=== PATIENT | female | born 2000 | race Caucasian/White ===

== ENCOUNTER 2020-01-03 14:14 | Emergency (ER) | payer OTHER, BC, SELFPAY ==
[2020-01-03 14:16] VITALS: BP 121/72; PULSE 90; RESP 18; TEMP 37; O2SAT 100
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
== END 2020-01-03 15:45 | disposition home or self-care (01) ==
PROVIDERS: Emergency Provider Emergency Medicine; PCP Internal Medicine
DX: S16.1XXA Strain of muscle, fascia and tendon at neck level, initial encounter (principal); S29.012A Strain of muscle and tendon of back wall of thorax, initial encounter; V44.5XXA Car driver injured in collision with heavy transport vehicle or bus in traffic accident, initial encounter
CPT/HCPCS: 99283

== ENCOUNTER 2021-11-20 08:32 | Emergency (ER) | payer BC, SELFPAY ==
--- NOTE | 2021-11-20 08:40 | ED.URI ---
HPI - URI/Sore Throat General Chief Complaint: Upper Respiratory Infection Stated Complaint: sore throat/cough Time Seen by Provider: 11/20/21 08:40 Source: patient, family, RN notes reviewed and old records reviewed Mode of arrival: ambulatory Limitations: no limitations History of Present Illness HPI Narrative: 20-year-old female presents to [facility] with complaints of sore throat and cough that started when she woke up this morning. States that she went to work, works in a daycare and developed a headache and fatigue. States that the daycare they have had a lot of positive flu and strep's. No treatment prior to arrival. No sinus pain or congestion. No chest pain or abdominal pain. No ear pain. Denies fevers MD elicited complaint: cough and sore throat Related Data Allergies Allergy/AdvReac Type Severity Reaction Status Date / Time No Known Allergies Allergy Verified 04/26/21 10:31 Review of Systems Review of Systems: All systems reviewed & are unremarkable except as noted in HPI and below Constitutional: Constitutional: Reports no additional constitutional complaints, Denies chills, Denies fever(s) and Denies headache(s) Eyes: Eyes: Reports no additional eye complaints ENT: Reports as per HPI, Denies vertigo, Denies dizziness, Denies headache(s), Denies nasal congestion and Reports sore throat Cardiovascular: Cardiovascular: Reports no additional cardiovascular complaints, Denies chest pain, Denies syncope, Denies rapid heart rate and Denies dyspnea Respiratory: Respiratory: Reports as per HPI, Reports cough, Denies dyspnea and Denies wheezing Gastrointestinal: Gastrointestinal: Reports no additional gastrointestinal complaints, Denies abdominal pain, Denies diarrhea, Denies nausea and Denies vomiting Musculoskeletal: Musculoskeletal: Reports no additional musculoskeletal complaints and Denies numbness Integumentary/Breasts: Skin/Breast: Reports system reviewed and no additional complaints, except as docu Neurologic: Reports system reviewed and no additional complaints, except as documented, Denies vertigo, Denies dizziness, Denies syncope, Denies headache(s), Denies focal weakness and Denies numbness Psychiatric: Psychiatric: Reports no additional psychiatric complaints Allergic/Immunologic: Allergic/Immunologic: Reports no additional allergic/immunologic complaints and Denies wheezing PMFSH Past Medical History Medical History (Updated 11/20/21 @ 09:03 by Tamiko Cool APRN) Asthma Surgical History Surgical History (Updated 11/20/21 @ 16:51 by Tamiko Cool APRN) No pertinent past surgical history Family History Family History Grandparent Family history of thyroid disease Diabetes mellitus Hypertension Mother Depression Asthma Social History Social History Smoking status: Current every day smoker (1/4 pack) Tobacco type: e-cigarettes/vaping Second hand tobacco smoke exposure: Yes Alcohol intake: never Substance use: current Substance use type: marijuana Comments At the time of my signature, I reviewed and agree with the nursing past medical, surgical, social, and family history. There is no relevant family history pertinent to the patient complaint. Exam Const: General: cooperative, healthy appearing, no acute distress, well developed and alert Nutritional Appearance: well nourished Orientation/consciousness: patient oriented x3 Limitations: no limitations HENMT: Head: normal to inspection Ears: external ears normal, TM's normal bilaterally and EAC's normal General nose exam: Normal external nose present Face and sinus: normal facial exam Mouth: Yes Normal oral and palatal mucosa present Throat: tonsils normal, uvula midline and postnasal drainage Eyes: Conjunctivae: conjunctivae normal Pupils: Equal, round and reactive pupils present Neck: Neck: no
[2021-11-20 08:42] VITALS: BP 116/62; PULSE 89; RESP 16; TEMP 37.2; O2SAT 99
== END 2021-11-20 09:13 | disposition home or self-care (01) ==
PROVIDERS: Emergency Provider Nurse Practitioner; PCP Internal Medicine
DX: J06.9 Acute upper respiratory infection, unspecified (principal); F17.290 Nicotine dependence, other tobacco product, uncomplicated; J45.909 Unspecified asthma, uncomplicated
CPT/HCPCS: 87081; 87804; 87880; 99213; G0463